=== PATIENT | female | born 1995 | race Caucasian/White ===

== ENCOUNTER 2024-02-16 07:36 | Inpatient (IN) ==
[2024-02-16] MEDS ORDERED: LIDOCAINE 1% LOCAL 20 ML VIAL INFIL PRN (08:43)
[2024-02-16 09:15] LABS: Hematocrit (blood only) 30.6 % (37.0-47.0); Hemoglobin 10.5 g/dl (12.0-16.0); Mean Corpuscular Hemoglobin 30.4 pg (25.0-34.0); Mean Corpuscular Hgb Conc 34.3 g/dL (32.0-36.0); Mean Corpuscular Volume 88.7 fL (80.0-100.0); Mean Platelet Volume 11.1 fL (9.4-12.4); Platelet Count 171 K/uL (130-400); RDW Coefficient of Variation 13.2 % (11.5-14.5); RDW Standard Deviation 42.4 fL (36.4-46.3); Red Blood Count 3.45 M/uL (4.20-5.40); White Blood Count 11.32 K/ul (4.8-10.8)
[2024-02-16] MEDS: LACTATED RINGER'S 1,000 ML IV PRN (09:20)
[2024-02-16] MEDS: PENICILLIN GK 6 MU in DEXTROSE 5% 250 ML IV STA (09:21)
--- NOTE | 2024-02-16 09:21 | History & Physical Report ---
Date of Service February 16, 2024 Assessment & Plan (1) 40 weeks gestation of : (2) Encounter for induction of labor: Plan Aviles placed and pitocin started for indution. Fetus category one. arom as indicated. epidural on request. Anticipate . Admission and Anticipated Discharge Date Admission Date: February 16, 2024 History of Present Illness Chief Complaint: iol Primary Care Provider: NO PCP Patient is a 29yowf with iup at 40 4/7 weeks who presents to labor and delivery for iol for post dates. Notes feels well. rare contractions. Good fm. Patient had an unfavorable cervix in the office yesterday. Aviles was planned that evening. Unable to accomodate last night. Plan to place a aviles today. Discussed the r/b/se including arom, nrfht, need for urgent delivery. Verbal consent obtained. and Delivery Plans COVID POSITIVE 10/22/23 (SX STARTED 10/20/23) -Start low dose aspirin Hypothyroid *Check TFTs Q4wks GBS positive by urine IOL 02/16/24 OB Labs: Blood Type O Positive 07/09/23 Antibody Screen NEGATIVE 07/09/23 Hemoglobin 11.3 g/dl (12.0-16.0) L 11/22/23 Hematocrit 33.0 % (37.0-47.0) L 11/22/23 Mean Corpuscular Volume 89.5 fL (80.0-100.0) 07/09/23 Platelet Count 211 K/uL (130-400) 07/09/23 Rubella IgG Antibody Immune (Immune) 07/09/23 Rapid Plasma Reagin Nonreactive (Nonreactive) 07/09/23 Hepatitis B Surface Antigen. NON-REACTIVE (NON-REACTIVE) 07/09/23 Hepatitis C Antibody (EIA) NON-REACTIVE (NON-REACTIVE) 07/09/23 HIV (1&2) Ag and Ab Confirmation NON-REACTIVE (NON-REACTIVE) 07/09/23 Glucose 1 Hour 50 gm Load 120 mg/dl (70-130) 11/22/23 Maternal Serum Alpha Fetoprotein 44.9 ng/mL 09/03/23 OB Optional Labs: Chlamydia trachomatis RNA Not Detected (NotDetected) 07/09/23 Neisseria gonorrhoeae RNA Not Detected (NotDetected) 07/09/23 Thyroid Stimulating Hormone (TSH) 1.511 uIu/ml (0.300-4.500) 01/07/24 Alpha Fetoprotein Triple Screen SEE NOTE 09/03/23 Labs Reviewed: Horizon 14-negative--mln cfdna-low risk--mln GBS positive in urine. Allergies Allergy/AdvReac Type Severity Reaction Status Date / Time apple Allergy Swelling Verified 02/16/24 08:22 of Lip/Tongue/Throat cucumber Allergy Swelling Verified 02/16/24 08:22 of Lip/Tongue/Throat strawberry Allergy Swelling Verified 02/16/24 08:22 of Lip/Tongue/Throat Home Medications Medication Instructions Recorded Confirmed Type vit 168-iron 27 mg-folic cap PO 06/28/23 02/15/24 History acid 800 mcg-omega3 235 mg capsule (One-A-Day -1) ondansetron HCl 4 mg tablet 4 mg PO Q6H PRN nausea and 10/29/23 02/16/24 Rx vomiting #20 tabs levothyroxine 125 mcg tablet 125 mcg PO DAILY #30 tabs 02/11/24 02/16/24 Rx Patient History Surgical History History of endoscopy History of colonoscopy History of cholecystectomy Family History Grandfather (Paternal) No problems noted. Grandfather (Maternal) Breast cancer great grandfather Mother Hypertension Hypothyroidism Father Heart disorder Other Diabetes Denies family history of Ovarian cancer Colorectal cancer Social History Smoking Status: Former smoker Tobacco Type: E-cigarettes / Vaping Second Hand Exposure: No; Do You Dip or Chew Tobacco: No; Hx Alcohol Use: Yes Alcohol Intake Frequency: 2-4 x/Month Hx Substance Use: No Preferred Language: Bulgarian Communication Ability: Effective Bill Checker Required: No Beliefs That Will Affect Care: None marital status: marital status details: Santiago(26) [phone] Current Living Situation: Spouse Current Living Situation Comment: lives with spouse, 1 dog current occupational status: employed 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 cervix visualized with speculum. aviles placed though cervix visually, inflated wtih 30cc sterile water. Tolerated well toco--rare efm--130s with mod variability, accels to 170s, no decels. Results & Data Vital Signs (Past 12 Hours) Vital Signs Temp Pulse Resp BP 02/16/24 08:06 96 H 134/92 02/16/24 08:02 36.9 C 18 Coding Level of Care Code None Diagnoses 40 weeks gestation of Z3A.40 Encounter for induction of labor Z34.90
[2024-02-16] MEDS: OXYTOCIN 30 UNITS/NSS 30 UNITS/500 ML BAG IV PRN (09:35)
[2024-02-16] MEDS ORDERED: ePHEDrine sulfate 50 MG/ML AMP IV PRN (11:32)
[2024-02-16] MEDS ORDERED: NALOXONE HCL 1 MG in SODIUM CHLORIDE 0.9% 1,000 ML IV PRN (11:32)
[2024-02-16] MEDS ORDERED: NALBUPHINE HCL 5 MG in SYRINGE 0 ML IV PRN (11:32)
[2024-02-16] MEDS ORDERED: NALOXONE HCL 0.4 MG/1 ML VIAL/CARP IV PRN (11:32)
[2024-02-16] MEDS ORDERED: ROPIVACAINE 0.5% PF 5 MG/ML 20 ML VIAL EPI PRN (11:32)
[2024-02-16] MEDS ORDERED: diphenhydrAMINE 50 MG/ML VIAL IV PRN (11:32)
[2024-02-16] MEDS ORDERED: LIDOCAINE 2% MPF LOCAL 5 ML VIAL EPI PRN (11:32)
--- NOTE | 2024-02-16 11:32 | Anesthesiology Consultation ---
Date of Service February 16, 2024 Assessment & Plan (1) Encounter for pre-operative examination: Chart Review Chart Review: Patient NOT seen in Pre Admission Testing and Acceptable Risk for Labor Epidural Consults Requested none History Height/Weight Height: 5 ft 4 in Weight: 98.43 kg Allergies Allergy/AdvReac Type Severity Reaction Status Date / Time apple Allergy Swelling Verified 02/16/24 08:22 of Lip/Tongue/Throat cucumber Allergy Swelling Verified 02/16/24 08:22 of Lip/Tongue/Throat strawberry Allergy Swelling Verified 02/16/24 08:22 of Lip/Tongue/Throat Medications Home Medications Medication Instructions Recorded Confirmed Last Taken vit 168-iron 27 mg-folic cap PO 06/28/23 02/15/24 02/15/24 acid 800 mcg-omega3 235 mg capsule (One-A-Day -1) ondansetron HCl 4 mg tablet 4 mg PO Q6H PRN nausea and 10/29/23 02/16/24 02/14/24 vomiting #20 tabs levothyroxine 125 mcg tablet 125 mcg PO DAILY #30 tabs 02/11/24 02/16/24 02/16/24 Active Medications Generic Name Dose Route Start Last Admin Trade Name Freq PRN Reason Stop Dose Admin Oxytocin 30 units in 500 mls @ 1 mls/hr 02/16/24 08:43 02/16/24 09:35 Pitocin 30 Units/Nss IV 02/18/24 08:42 0.06 units/hr .Q24H PRN 1 mls/hr Labor Induction/Augmentation Administration Protocol 0.06 UNITS/HR Lactated Ringer's 1,000 mls @ 125 mls/hr 02/16/24 08:43 02/16/24 09:20 Lr IV 02/18/24 08:42 125 mls/hr .Q8H PRN Administration L&D Protocol Protocol Past Family History Family History Grandfather (Paternal) No problems noted. Grandfather (Maternal) Breast cancer great grandfather Mother Hypertension Hypothyroidism Father Heart disorder Other Diabetes Denies family history of Ovarian cancer Colorectal cancer Past Surgical History Surgical History History of endoscopy History of colonoscopy History of cholecystectomy Social History Smoking Status: Former smoker Do You Dip or Chew Tobacco: No Hx Alcohol Use: Yes Hx Substance Use: No Physical Exam Vital Signs Last Vital Signs Temp 98.4 F 02/16/24 08:06 Pulse 82 02/16/24 11:16 Resp 18 02/16/24 08:02 BP 135/87 02/16/24 11:16 Testing Laboratory Results 02/16/24 08:58
[2024-02-16] MEDS: fentANYL 2 MCG/ML BUPIVacaine 0.125%-NSS 100ML BAG EPI PRN (11:59)
[2024-02-16] MEDS: BUPIVACAINE 0.25% PF 30 ML VIAL EPI PRN (12:01)
[2024-02-16] MEDS: LIDOCAINE 2%/EPINEPHRINE 1:200,000 20 ML PF EPI STA (12:01)
[2024-02-16] MEDS: PENICILLIN GK 3 MU in DEXTROSE 5% 100 ML IV PRN (13:16)
[2024-02-16] MEDS: ePHEDrine sulfate 50 MG/ML AMP ONE (13:28)
[2024-02-16] MEDS: fentANYL 2 MCG/ML BUPIVacaine 0.125%-NSS 100ML BAG ONE (13:28)
[2024-02-16] MEDS: fentaNYL citrate PF 100 MCG/2 ML VIAL ONE (13:28)
[2024-02-16] MEDS: BUPIVACAINE 0.25% PF 30 ML VIAL EPI STA (13:29)
[2024-02-16] MEDS: BUPIVACAINE 0.25% PF 30 ML VIAL ONE (13:29)
[2024-02-16] MEDS: fentaNYL citrate PF 100 MCG/2 ML VIAL EPI STA (13:29)
[2024-02-16] MEDS: LIDOCAINE 2%/EPINEPHRINE 1:200,000 20 ML PF ONE (13:29)
[2024-02-16] MEDS: SODIUM CHLORIDE 0.9% PF INJ 10 ML VIAL EPI STA (13:29)
[2024-02-16] MEDS: SODIUM CHLORIDE 0.9% PF INJ 10 ML VIAL ONE (13:29)
--- NOTE | 2024-02-16 17:24 | Labor Progress Brief Note ---
Date of Service February 16, 2024 Subjective comfortable with epidural Assessment & Plan (1) Encounter for induction of labor: (2) 40 weeks gestation of : Plan continue current management. Fetus overall category one. making change. anticipate . Admission and Anticipated Discharge Date Admission Date: February 16, 2024 Physical Exam Physical Exam: cx--5/75/-2 toco--q q 2-4min, pit at 13 efm--150s with mod variability, accels to 160s , had a decel while lying flat on her back and recovered with position change Results & Data Vital Signs (Past 12 Hours) Vital Signs Temp Pulse Resp BP Pulse Ox 02/16/24 17:19 83 96 02/16/24 17:17 81 91 02/16/24 17:14 92 H 96 02/16/24 17:09 97 02/16/24 17:09 89 02/16/24 17:09 32 L 110/67 02/16/24 17:08 90 94 02/16/24 17:04 85 96 02/16/24 17:00 18 02/16/24 17:00 18 02/16/24 16:59 95 02/16/24 16:59 93 H 02/16/24 16:59 85 94 02/16/24 16:55 89 121/79 02/16/24 16:54 86 94 02/16/24 16:52 82 94 02/16/24 16:49 92 H 96 02/16/24 16:44 84 95 02/16/24 16:43 92 H 94 02/16/24 16:39 88 123/77 96 02/16/24 16:34 82 95 02/16/24 16:30 80 18 94 02/16/24 16:29 83 95 02/16/24 16:24 97 02/16/24 16:24 84 02/16/24 16:24 86 127/86 02/16/24 16:23 83 94 02/16/24 16:19 89 97 02/16/24 16:14 79 96 02/16/24 16:09 75 130/80 97 02/16/24 16:04 86 95 02/16/24 16:01 84 91 02/16/24 16:00 18 02/16/24 16:00 18 02/16/24 15:59 86 96 02/16/24 15:54 99 02/16/24 15:54 77 02/16/24 15:54 93 H 136/81 02/16/24 15:51 64 94 02/16/24 15:49 63 96 02/16/24 15:44 64 94 02/16/24 15:43 65 94 02/16/24 15:39 62 117/64 95 02/16/24 15:34 68 96 02/16/24 15:30 18 02/16/24 15:30 18 02/16/24 15:29 67 97 02/16/24 15:24 96 02/16/24 15:24 80 02/16/24 15:24 65 114/62 02/16/24 15:19 65 97 02/16/24 15:14 68 98 02/16/24 15:09 96 02/16/24 15:09 73 02/16/24 15:09 75 123/63 02/16/24 15:04 65 95 02/16/24 14:59 63 96 02/16/24 14:54 96 02/16/24 14:54 64 02/16/24 14:54 65 120/62 02/16/24 14:49 67 98 02/16/24 14:44 66 96 02/16/24 14:39 96 02/16/24 14:39 69 02/16/24 14:39 65 116/65 02/16/24 14:34 68 98 02/16/24 14:30 18 02/16/24 14:30 36.9 C 18 02/16/24 14:29 74 100 02/16/24 14:25 75 136/80 02/16/24 14:24 75 99 02/16/24 14:19 69 99 02/16/24 14:14 85 98 02/16/24 14:09 97 02/16/24 14:09 74 02/16/24 14:09 69 129/80 02/16/24 14:04 75 96 02/16/24 14:00 18 02/16/24 14:00 18 02/16/24 13:59 67 99 02/16/24 13:54 70 136/81 99 02/16/24 13:49 71 97 02/16/24 13:44 69 98 02/16/24 13:39 98 02/16/24 13:39 71 02/16/24 13:39 66 130/74 02/16/24 13:34 74 99 02/16/24 13:30 18 02/16/24 13:30 18 02/16/24 13:29 78 99 02/16/24 13:25 82 145/87 H 02/16/24 13:24 74 99 02/16/24 13:19 71 99 02/16/24 13:14 71 98 02/16/24 13:09 69 123/74 98 02/16/24 13:05 70 89 L 02/16/24 13:04 74 98 02/16/24 13:00 18 02/16/24 13:00 36.9 C 18 02/16/24 12:59 69 97 02/16/24 12:54 69 120/72 97 02/16/24 12:49 71 98 02/16/24 12:44 70 97 02/16/24 12:39 73 121/74 97 02/16/24 12:35 80 92 02/16/24 12:34 78 95 02/16/24 12:30 18 02/16/24 12:30 36.9 C 18 02/16/24 12:29 71 97 02/16/24 12:24 74 125/74 97 02/16/24 12:19 73 98 02/16/24 12:14 77 99 02/16/24 12:10 18 02/16/24 12:10 18 02/16/24 12:09 81 99 02/16/24 12:08 18 02/16/24 12:08 18 02/16/24 12:07 80 123/69 02/16/24 12:06 18 02/16/24 12:06 18 02/16/24 12:05 78 137/69 02/16/24 12:04 85 18 98 02/16/24 12:03 77 129/77 02/16/24 12:02 18 02/16/24 12:02 18 02/16/24 12:01 82 137/77 02/16/24 12:00 18 02/16/24 12:00 18 02/16/24 11:59 84 135/79 98 02/16/24 11:58 18 02/16/24 11:58 18 02/16/24 11:57 88 128/74 02/16/24 11:54 84 99 02/16/24 11:49 87 100 02/16/24 11:44 81 100 02/16/24 11:41 18 02/16/24 11:41 18 02/16/24 11:16 82 135/87 02/16/24 10:41 70 142/93 H 02/16/24 10:39 75 141/88 H 02/16/24 08:06 36.9 C 96 H 134/92 02/16/24 08:02 36.9 C 18 Coding Level of Care Code None Diagnoses Encounter for induction of labor Z34.90 40 weeks gestation of Z3A.40
--- NOTE | 2024-02-16 18:35 | Labor Progress Brief Note ---
Date of Service February 16, 2024 Subjective comfortable Assessment & Plan (1) Encounter for induction of labor: (2) 40 weeks gestation of : Plan iupc placed. goal of mvus >200. fetus overall very reassuring , even though category two at times wtih some variables. pit based on mvus. Admission and Anticipated Discharge Date Admission Date: February 16, 2024 Physical Exam Physical Exam: cx--5/80/-2 iupc placed clear fluid noted toco--q3-4, pit at 13 efm--150s with mod varibility, accels present, +scalp stim, some variables noted when the baby is very active and moving alot. resolve with position change Results & Data Vital Signs (Past 12 Hours) Vital Signs Temp Pulse Resp BP Pulse Ox 02/16/24 18:29 86 97 02/16/24 18:26 75 92 02/16/24 18:24 71 121/64 96 02/16/24 18:19 68 95 02/16/24 18:14 75 99 02/16/24 18:11 93 H 93 02/16/24 18:09 95 02/16/24 18:09 71 02/16/24 18:09 75 141/80 H 02/16/24 18:04 73 96 02/16/24 18:00 18 02/16/24 18:00 18 02/16/24 17:59 73 96 02/16/24 17:54 79 136/78 98 02/16/24 17:49 82 99 02/16/24 17:44 81 90 02/16/24 17:39 96 02/16/24 17:39 78 02/16/24 17:39 74 132/79 02/16/24 17:34 85 96 02/16/24 17:31 83 93 02/16/24 17:30 18 02/16/24 17:30 36.9 C 18 02/16/24 17:29 89 96 02/16/24 17:24 77 124/61 97 02/16/24 17:19 83 96 02/16/24 17:17 81 91 02/16/24 17:14 92 H 96 02/16/24 17:09 97 02/16/24 17:09 89 02/16/24 17:09 32 L 110/67 02/16/24 17:08 90 94 02/16/24 17:04 85 96 02/16/24 17:00 18 02/16/24 17:00 18 02/16/24 16:59 95 02/16/24 16:59 93 H 02/16/24 16:59 85 94 02/16/24 16:55 89 121/79 02/16/24 16:54 86 94 02/16/24 16:52 82 94 02/16/24 16:49 92 H 96 02/16/24 16:44 84 95 02/16/24 16:43 92 H 94 02/16/24 16:39 88 123/77 96 02/16/24 16:34 82 95 02/16/24 16:30 80 18 94 02/16/24 16:29 83 95 02/16/24 16:24 97 02/16/24 16:24 84 02/16/24 16:24 86 127/86 02/16/24 16:23 83 94 02/16/24 16:19 89 97 02/16/24 16:14 79 96 02/16/24 16:09 75 130/80 97 02/16/24 16:04 86 95 02/16/24 16:01 84 91 02/16/24 16:00 18 02/16/24 16:00 18 02/16/24 15:59 86 96 02/16/24 15:54 99 02/16/24 15:54 77 02/16/24 15:54 93 H 136/81 02/16/24 15:51 64 94 02/16/24 15:49 63 96 02/16/24 15:44 64 94 02/16/24 15:43 65 94 02/16/24 15:39 62 117/64 95 02/16/24 15:34 68 96 02/16/24 15:30 18 02/16/24 15:30 18 02/16/24 15:29 67 97 02/16/24 15:24 96 02/16/24 15:24 80 02/16/24 15:24 65 114/62 02/16/24 15:19 65 97 02/16/24 15:14 68 98 02/16/24 15:09 96 02/16/24 15:09 73 02/16/24 15:09 75 123/63 02/16/24 15:04 65 95 02/16/24 14:59 63 96 04/03/24 14:54 96 02/16/24 14:54 64 02/16/24 14:54 65 120/62 02/16/24 14:49 67 98 02/16/24 14:44 66 96 02/16/24 14:39 96 02/16/24 14:39 69 02/16/24 14:39 65 116/65 02/16/24 14:34 68 98 02/16/24 14:30 18 02/16/24 14:30 36.9 C 18 02/16/24 14:29 74 100 02/16/24 14:25 75 136/80 02/16/24 14:24 75 99 02/16/24 14:19 69 99 02/16/24 14:14 85 98 02/16/24 14:09 97 02/16/24 14:09 74 02/16/24 14:09 69 129/80 02/16/24 14:04 75 96 02/16/24 14:00 18 02/16/24 14:00 18 02/16/24 13:59 67 99 02/16/24 13:54 70 136/81 99 02/16/24 13:49 71 97 02/16/24 13:44 69 98 02/16/24 13:39 98 02/16/24 13:39 71 02/16/24 13:39 66 130/74 02/16/24 13:34 74 99 02/16/24 13:30 18 02/16/24 13:30 18 02/16/24 13:29 78 99 02/16/24 13:25 82 145/87 H 02/16/24 13:24 74 99 02/16/24 13:19 71 99 02/16/24 13:14 71 98 02/16/24 13:09 69 123/74 98 02/16/24 13:05 70 89 L 02/16/24 13:04 74 98 02/16/24 13:00 18 02/16/24 13:00 36.9 C 18 02/16/24 12:59 69 97 02/16/24 12:54 69 120/72 97 02/16/24 12:49 71 98 02/16/24 12:44 70 97 02/16/24 12:39 73 121/74 97 04/03/24 12:35 80 92 02/16/24 12:34 78 95 02/16/24 12:30 18 02/16/24 12:30 36.9 C 18 02/16/24 12:29 71 97 02/16/24 12:24 74 125/74 97 02/16/24 12:19 73 98 02/16/24 12:14 77 99 02/16/24 12:10 18 02/16/24 12:10 18 02/16/24 12:09 81 99 02/16/24 12:08 18 02/16/24 12:08 18 02/16/24 12:07 80 123/69 02/16/24 12:06 18 02/16/24 12:06 18 02/16/24 12:05 78 137/69 02/16/24 12:04 85 18 98 02/16/24 12:03 77 129/77 02/16/24 12:02 18 02/16/24 12:02 18 02/16/24 12:01 82 137/77 02/16/24 12:00 18 02/16/24 12:00 18 02/16/24 11:59 84 135/79 98 02/16/24 11:58 18 02/16/24 11:58 18 02/16/24 11:57 88 128/74 02/16/24 11:54 84 99 02/16/24 11:49 87 100 02/16/24 11:44 81 100 02/16/24 11:41 18 02/16/24 11:41 18 02/16/24 11:16 82 135/87 02/16/24 10:41 70 142/93 H 02/16/24 10:39 75 141/88 H 02/16/24 08:06 36.9 C 96 H 134/92 02/16/24 08:02 36.9 C 18 Coding Level of Care Code None Diagnoses Encounter for induction of labor Z34.90 40 weeks gestation of Z3A.40
[2024-02-16] MEDS: SODIUM CHLORIDE 0.9% PF INJ 10 ML VIAL EPI PRN (22:34)
[2024-02-16] MEDS: fentaNYL citrate PF 100 MCG/2 ML VIAL EPI PRN (22:34)
--- NOTE | 2024-02-16 22:37 | Anesthesia Procedure Note ---
Date of Service February 16, 2024 Anesthesia Epidural Re-Dose Vital Signs Temp Pulse Resp BP Pulse Ox 37.2 C 86 16 147/80 H 100 02/16/24 21:01 02/16/24 22:34 02/16/24 21:01 02/16/24 22:34 02/16/24 22:34 Notes Pain Intensity: 7 Dilatation (cm): 6.0 Effacement (%): 80 Called by nursing to evaluate epidural as the patient is having increased pain. The epidural was re-dosed with the following medications (all medications via epidural route) after negative aspiration of the epidural catheter for CSF/HEME. 0.2 Ropivacaine ml via epidural After Epidural Re-Dose Mental Status: alert / awake / arousable and participated in evaluation Pain: improving with treatment Airway Patency, RR, SpO2: stable & adequate BP & HR: stable & adequate Additional Notes: Asked to evaluate patient for worsening pain with contractions. Patient has b/l L1 level on exam with ice. Redosed epidural with 10 cc of 0.125% bupi and 100 mcg fentanyl. BP stable. patient pain improved.
--- NOTE | 2024-02-17 01:14 | Labor Progress Brief Note ---
Date of Service February 17, 2024 Subjective Got redosed and comfortable Assessment & Plan (1) Encounter for induction of labor: (2) 40 weeks gestation of : Plan continues to make cervical change, however, not descending in the pelvis which is starting to become a bit concerning. Also some fhr changes could be consistent with impending cpd. fetus overall reassuring. Continue to montior closely patient and partner aware of my concerns. Admission and Anticipated Discharge Date Admission Date: February 16, 2024 Physical Exam Physical Exam: cx--ant lip/-1 toco--q2min, pit at 15, mvus adequate efm--140s with mod variability, variables at times with contractions, some periods of apparant marked variability Results & Data Vital Signs (Past 12 Hours) Vital Signs Temp Pulse Resp BP Pulse Ox 02/17/24 01:09 94 H 99 02/17/24 01:04 99 H 100 02/17/24 01:03 93 02/17/24 01:03 88 02/17/24 01:03 80 134/77 02/17/24 00:59 103 H 96 02/17/24 00:54 81 97 02/17/24 00:49 93 H 98 02/17/24 00:44 84 98 02/17/24 00:40 98 H 92 02/17/24 00:39 91 H 97 02/17/24 00:34 91 H 99 02/17/24 00:33 91 H 141/84 H 02/17/24 00:29 86 97 02/17/24 00:25 95 H 93 02/17/24 00:24 93 H 96 02/17/24 00:19 101 H 97 02/17/24 00:17 93 H 144/89 H 02/17/24 00:14 96 H 98 02/17/24 00:09 116 H 100 02/17/24 00:05 89 91 02/17/24 00:04 91 H 98 02/17/24 00:03 81 139/82 02/16/24 23:59 90 99 02/16/24 23:56 86 93 02/16/24 23:54 91 H 100 02/16/24 23:49 92 H 98 02/16/24 23:47 92 H 144/88 H 02/16/24 23:44 90 98 02/16/24 23:39 85 98 02/16/24 23:34 83 98 02/16/24 23:33 83 141/80 H 02/16/24 23:29 80 96 02/16/24 23:24 88 96 02/16/24 23:19 80 98 02/16/24 23:17 85 137/86 02/16/24 23:14 86 97 02/16/24 23:12 16 02/16/24 23:12 37.1 C 16 02/16/24 23:11 90 94 02/16/24 23:09 77 97 02/16/24 23:04 79 100 02/16/24 23:02 79 142/81 H 02/16/24 22:59 80 100 02/16/24 22:56 103 H 89 L 02/16/24 22:54 95 H 100 02/16/24 22:49 100 02/16/24 22:49 96 H 02/16/24 22:49 89 92 02/16/24 22:46 129/73 02/16/24 22:44 99 02/16/24 22:44 90 02/16/24 22:44 83 136/75 92 02/16/24 22:42 92 H 136/74 02/16/24 22:40 90 136/75 02/16/24 22:39 85 100 02/16/24 22:38 87 136/75 02/16/24 22:36 94 H 134/77 02/16/24 22:34 86 147/80 H 100 02/16/24 22:32 84 145/85 H 02/16/24 22:29 84 L 02/16/24 22:29 83 02/16/24 22:29 88 151/85 H 89 L 02/16/24 22:24 82 99 02/16/24 22:19 99 02/16/24 22:19 86 02/16/24 22:19 92 H 142/93 H 02/16/24 22:14 105 H 98 02/16/24 22:09 90 100 02/16/24 22:05 85 88 L 02/16/24 22:04 87 98 02/16/24 21:59 81 100 02/16/24 21:54 83 99 02/16/24 21:49 93 H 97 02/16/24 21:46 101 H 88 L 02/16/24 21:44 86 100 02/16/24 21:39 81 97 02/16/24 21:34 79 100 02/16/24 21:29 81 100 02/16/24 21:28 86 91 02/16/24 21:24 75 97 02/16/24 21:19 85 96 02/16/24 21:14 87 97 02/16/24 21:09 86 98 02/16/24 21:08 89 93 02/16/24 21:04 90 99 02/16/24 21:01 16 02/16/24 21:01 37.2 C 16 02/16/24 20:59 90 98 02/16/24 20:54 78 L 02/16/24 20:54 75 02/16/24 20:54 65 94 02/16/24 20:49 96 H 100 02/16/24 20:48 112 H 91 02/16/24 20:44 97 H 135/88 100 02/16/24 20:39 133 H 100 02/16/24 20:34 88 100 02/16/24 20:30 100 H 94 02/16/24 20:29 90 100 02/16/24 20:28 90 140/85 02/16/24 20:24 93 H 98 02/16/24 20:19 102 H 100 02/16/24 20:15 106 H 91 02/16/24 20:14 95 H 100 02/16/24 20:09 99 H 139/91 99 02/16/24 20:07 93 H 90 02/16/24 20:04 83 99 02/16/24 19:59 78 100 02/16/24 19:54 81 134/96 96 02/16/24 19:51 84 90 02/16/24 19:49 85 99 02/16/24 19:44 85 98 02/16/24 19:43 80 93 02/16/24 19:40 76 158/80 H 02/16/24 19:39 69 99 02/16/24 19:34 69 82 L 02/16/24 19:29 69 98 02/16/24 19:28 72 92 02/16/24 19:24 72 171/88 H 100 02/16/24 19:21 71 91 02/16/24 19:19 72 100 02/16/24 19:14 76 97 02/16/24 19:12 74 92 02/16/24 19:09 97 02/16/24 19:09 72 02/16/24 19:09 72 149/90 H 02/16/24 19:04 36.9 C 74 16 100 02/16/24 18:59 72 100 02/16/24 18:54 98 02/16/24 18:54 74 02/16/24 18:54 69 150/87 H 02/16/24 18:51 73 92 02/16/24 18:49 75 100 02/16/24 18:44 74 100 02/16/24 18:42 80 93 02/16/24 18:39 98 02/16/24 18:39 75 02/16/24 18:39 109 H 141/80 H 02/16/24 18:34 74 99 02/16/24 18:32 87 93 02/16/24 18:30 18 02/16/24 18:30 18 02/16/24 18:29 86 97 02/16/24 18:26 75 92 02/16/24 18:24 71 121/64 96 02/16/24 18:19 68 95 02/16/24 18:14 75 99 02/16/24 18:11 93 H 93 02/16/24 18:09 95 02/16/24 18:09 71 02/16/24 18:09 75 141/80 H 02/16/24 18:04 73 96 02/16/24 18:00 18 02/16/24 18:00 18 02/16/24 17:59 73 96 02/16/24 17:54 79 136/78 98 02/16/24 17:49 82 99 02/16/24 17:44 81 90 02/16/24 17:39 96 02/16/24 17:39 78 02/16/24 17:39 74 132/79 02/16/24 17:34 85 96 02/16/24 17:31 83 93 02/16/24 17:30 18 02/16/24 17:30 36.9 C 18 02/16/24 17:29 89 96 02/16/24 17:24 77 124/61 97 02/16/24 17:19 83 96 02/16/24 17:17 81 91 02/16/24 17:14 92 H 96 02/16/24 17:09 97 02/16/24 17:09 89 02/16/24 17:09 32 L 110/67 02/16/24 17:08 90 94 02/16/24 17:04 85 96 02/16/24 17:00 18 02/16/24 17:00 18 02/16/24 16:59 95 02/16/24 16:59 93 H 02/16/24 16:59 85 94 02/16/24 16:55 89 121/79 02/16/24 16:54 86 94 02/16/24 16:52 82 94 02/16/24 16:49 92 H 96 02/16/24 16:44 84 95 02/16/24 16:43 92 H 94 02/16/24 16:39 88 123/77 96 02/16/24 16:34 82 95 02/16/24 16:30 80 18 94 02/16/24 16:29 83 95 02/16/24 16:24 97 02/16/24 16:24 84 02/16/24 16:24 86 127/86 02/16/24 16:23 83 94 02/16/24 16:19 89 97 02/16/24 16:14 79 96 02/16/24 16:09 75 130/80 97 02/16/24 16:04 86 95 02/16/24 16:01 84 91 02/16/24 16:00 18 02/16/24 16:00 18 02/16/24 15:59 86 96 02/16/24 15:54 99 02/16/24 15:54 77 02/16/24 15:54 93 H 136/81 02/16/24 15:51 64 94 02/16/24 15:49 63 96 02/16/24 15:44 64 94 02/16/24 15:43 65 94 02/16/24 15:39 62 117/64 95 02/16/24 15:34 68 96 02/16/24 15:30 18 02/16/24 15:30 18 02/16/24 15:29 67 97 02/16/24 15:24 96 02/16/24 15:24 80 02/16/24 15:24 65 114/62 02/16/24 15:19 65 97 02/16/24 15:14 68 98 02/16/24 15:09 96 02/16/24 15:09 73 04/03/24 15:09 75 123/63 02/16/24 15:04 65 95 02/16/24 14:59 63 96 02/16/24 14:54 96 02/16/24 14:54 64 02/16/24 14:54 65 120/62 02/16/24 14:49 67 98 02/16/24 14:44 66 96 02/16/24 14:39 96 02/16/24 14:39 69 02/16/24 14:39 65 116/65 02/16/24 14:34 68 98 02/16/24 14:30 18 02/16/24 14:30 36.9 C 18 02/16/24 14:29 74 100 02/16/24 14:25 75 136/80 02/16/24 14:24 75 99 02/16/24 14:19 69 99 02/16/24 14:14 85 98 02/16/24 14:09 97 02/16/24 14:09 74 02/16/24 14:09 69 129/80 02/16/24 14:04 75 96 02/16/24 14:00 18 02/16/24 14:00 18 02/16/24 13:59 67 99 02/16/24 13:54 70 136/81 99 02/16/24 13:49 71 97 02/16/24 13:44 69 98 02/16/24 13:39 98 02/16/24 13:39 71 02/16/24 13:39 66 130/74 02/16/24 13:34 74 99 02/16/24 13:30 18 02/16/24 13:30 18 02/16/24 13:29 78 99 02/16/24 13:25 82 145/87 H 02/16/24 13:24 74 99 02/16/24 13:19 71 99 02/16/24 13:14 71 98 Coding Level of Care Code None Diagnoses Encounter for induction of labor Z34.90 40 weeks gestation of Z3A.40
--- NOTE | 2024-02-17 03:08 | Labor Progress Brief Note ---
Date of Service February 17, 2024 Subjective notes comfortable. baby does not tolerate the right side. some recent elevated pressures but otherwise asymptomatic. Assessment & Plan (1) Encounter for induction of labor: (2) 40 weeks gestation of : Plan fetus overall reassuring, responds to postion change, suspect we have a cord somewhere. baby is lower, lots of molding. recheck in 1 hour. Admission and Anticipated Discharge Date Admission Date: February 16, 2024 Physical Exam Physical Exam: cx--ant lip, floppy, station 0 toco--q1-2min, pit at 15, Mvus have been mostly adequate efm--150s with mod variability, small accels, occasional variables, baby very active Results & Data Vital Signs (Past 12 Hours) Vital Signs Temp Pulse Resp BP Pulse Ox 02/17/24 03:04 83 168/90 H 02/17/24 03:03 93 H 182/96 H 02/17/24 02:48 91 H 178/96 H 02/17/24 02:46 18 02/17/24 02:46 37.0 C 18 02/17/24 02:38 95 H 148/67 H 02/17/24 02:36 89 174/97 H 02/17/24 02:34 89 191/97 H 02/17/24 02:09 78 94 02/17/24 02:04 94 02/17/24 02:04 79 02/17/24 02:04 78 94 02/17/24 02:02 76 127/60 02/17/24 01:59 95 02/17/24 01:59 88 02/17/24 01:59 77 94 02/17/24 01:54 76 95 02/17/24 01:49 79 95 02/17/24 01:47 86 115/65 02/17/24 01:44 80 96 02/17/24 01:39 37.2 C 88 18 97 02/17/24 01:35 85 94 02/17/24 01:34 82 95 02/17/24 01:33 85 145/77 H 02/17/24 01:29 79 95 02/17/24 01:24 84 97 02/17/24 01:19 81 96 02/17/24 01:18 80 142/81 H 02/17/24 01:14 87 96 02/17/24 01:09 94 H 99 02/17/24 01:04 99 H 100 02/17/24 01:03 93 02/17/24 01:03 88 02/17/24 01:03 80 134/77 02/17/24 00:59 103 H 96 02/17/24 00:54 81 97 02/17/24 00:49 93 H 98 02/17/24 00:44 84 98 02/17/24 00:40 98 H 92 02/17/24 00:39 91 H 97 02/17/24 00:34 91 H 99 02/17/24 00:33 91 H 141/84 H 02/17/24 00:29 86 97 02/17/24 00:25 95 H 93 02/17/24 00:24 93 H 96 02/17/24 00:19 101 H 97 02/17/24 00:17 93 H 144/89 H 02/17/24 00:14 96 H 98 02/17/24 00:09 116 H 100 02/17/24 00:05 89 91 02/17/24 00:04 91 H 98 02/17/24 00:03 81 139/82 02/16/24 23:59 90 99 02/16/24 23:56 86 93 02/16/24 23:54 91 H 100 02/16/24 23:49 92 H 98 02/16/24 23:47 92 H 144/88 H 02/16/24 23:44 90 98 02/16/24 23:39 85 98 02/16/24 23:34 83 98 02/16/24 23:33 83 141/80 H 02/16/24 23:29 80 96 02/16/24 23:24 88 96 02/16/24 23:19 80 98 02/16/24 23:17 85 137/86 02/16/24 23:14 86 97 02/16/24 23:12 16 02/16/24 23:12 37.1 C 16 02/16/24 23:11 90 94 02/16/24 23:09 77 97 02/16/24 23:04 79 100 02/16/24 23:02 79 142/81 H 02/16/24 22:59 80 100 02/16/24 22:56 103 H 89 L 02/16/24 22:54 95 H 100 02/16/24 22:49 100 02/16/24 22:49 96 H 02/16/24 22:49 89 92 02/16/24 22:46 129/73 02/16/24 22:44 99 02/16/24 22:44 90 02/16/24 22:44 83 136/75 92 02/16/24 22:42 92 H 136/74 02/16/24 22:40 90 136/75 02/16/24 22:39 85 100 02/16/24 22:38 87 136/75 02/16/24 22:36 94 H 134/77 02/16/24 22:34 86 147/80 H 100 02/16/24 22:32 84 145/85 H 02/16/24 22:29 84 L 02/16/24 22:29 83 02/16/24 22:29 88 151/85 H 89 L 02/16/24 22:24 82 99 02/16/24 22:19 99 02/16/24 22:19 86 02/16/24 22:19 92 H 142/93 H 02/16/24 22:14 105 H 98 02/16/24 22:09 90 100 02/16/24 22:05 85 88 L 02/16/24 22:04 87 98 02/16/24 21:59 81 100 02/16/24 21:54 83 99 02/16/24 21:49 93 H 97 02/16/24 21:46 101 H 88 L 02/16/24 21:44 86 100 02/16/24 21:39 81 97 02/16/24 21:34 79 100 02/16/24 21:29 81 100 02/16/24 21:28 86 91 02/16/24 21:24 75 97 02/16/24 21:19 85 96 02/16/24 21:14 87 97 02/16/24 21:09 86 98 02/16/24 21:08 89 93 02/16/24 21:04 90 99 02/16/24 21:01 16 02/16/24 21:01 37.2 C 16 02/16/24 20:59 90 98 02/16/24 20:54 78 L 02/16/24 20:54 75 02/16/24 20:54 65 94 02/16/24 20:49 96 H 100 02/16/24 20:48 112 H 91 02/16/24 20:44 97 H 135/88 100 02/16/24 20:39 133 H 100 02/16/24 20:34 88 100 02/16/24 20:30 100 H 94 02/16/24 20:29 90 100 02/16/24 20:28 90 140/85 02/16/24 20:24 93 H 98 02/16/24 20:19 102 H 100 02/16/24 20:15 106 H 91 02/16/24 20:14 95 H 100 02/16/24 20:09 99 H 139/91 99 02/16/24 20:07 93 H 90 02/16/24 20:04 83 99 02/16/24 19:59 78 100 02/16/24 19:54 81 134/96 96 02/16/24 19:51 84 90 02/16/24 19:49 85 99 02/16/24 19:44 85 98 02/16/24 19:43 80 93 02/16/24 19:40 76 158/80 H 02/16/24 19:39 69 99 02/16/24 19:34 69 82 L 02/16/24 19:29 69 98 02/16/24 19:28 72 92 02/16/24 19:24 72 171/88 H 100 02/16/24 19:21 71 91 02/16/24 19:19 72 100 02/16/24 19:14 76 97 02/16/24 19:12 74 92 02/16/24 19:09 97 02/16/24 19:09 72 02/16/24 19:09 72 149/90 H 02/16/24 19:04 36.9 C 74 16 100 02/16/24 18:59 72 100 02/16/24 18:54 98 02/16/24 18:54 74 02/16/24 18:54 69 150/87 H 02/16/24 18:51 73 92 02/16/24 18:49 75 100 02/16/24 18:44 74 100 02/16/24 18:42 80 93 02/16/24 18:39 98 02/16/24 18:39 75 02/16/24 18:39 109 H 141/80 H 02/16/24 18:34 74 99 02/16/24 18:32 87 93 02/16/24 18:30 18 02/16/24 18:30 18 02/16/24 18:29 86 97 02/16/24 18:26 75 92 02/16/24 18:24 71 121/64 96 02/16/24 18:19 68 95 02/16/24 18:14 75 99 02/16/24 18:11 93 H 93 02/16/24 18:09 95 02/16/24 18:09 71 02/16/24 18:09 75 141/80 H 02/16/24 18:04 73 96 02/16/24 18:00 18 02/16/24 18:00 18 02/16/24 17:59 73 96 02/16/24 17:54 79 136/78 98 02/16/24 17:49 82 99 02/16/24 17:44 81 90 02/16/24 17:39 96 02/16/24 17:39 78 02/16/24 17:39 74 132/79 02/16/24 17:34 85 96 02/16/24 17:31 83 93 02/16/24 17:30 18 02/16/24 17:30 36.9 C 18 02/16/24 17:29 89 96 02/16/24 17:24 77 124/61 97 02/16/24 17:19 83 96 02/16/24 17:17 81 91 02/16/24 17:14 92 H 96 02/16/24 17:09 97 02/16/24 17:09 89 02/16/24 17:09 32 L 110/67 02/16/24 17:08 90 94 02/16/24 17:04 85 96 02/16/24 17:00 18 02/16/24 17:00 18 02/16/24 16:59 95 02/16/24 16:59 93 H 02/16/24 16:59 85 94 02/16/24 16:55 89 121/79 02/16/24 16:54 86 94 02/16/24 16:52 82 94 02/16/24 16:49 92 H 96 02/16/24 16:44 84 95 02/16/24 16:43 92 H 94 02/16/24 16:39 88 123/77 96 02/16/24 16:34 82 95 02/16/24 16:30 80 18 94 02/16/24 16:29 83 95 02/16/24 16:24 97 02/16/24 16:24 84 02/16/24 16:24 86 127/86 02/16/24 16:23 83 94 02/16/24 16:19 89 97 02/16/24 16:14 79 96 02/16/24 16:09 75 130/80 97 02/16/24 16:04 86 95 02/16/24 16:01 84 91 02/16/24 16:00 18 02/16/24 16:00 18 02/16/24 15:59 86 96 02/16/24 15:54 99 02/16/24 15:54 77 02/16/24 15:54 93 H 136/81 02/16/24 15:51 64 94 02/16/24 15:49 63 96 02/16/24 15:44 64 94 02/16/24 15:43 65 94 02/16/24 15:39 62 117/64 95 02/16/24 15:34 68 96 02/16/24 15:30 18 02/16/24 15:30 18 02/16/24 15:29 67 97 02/16/24 15:24 96 02/16/24 15:24 80 02/16/24 15:24 65 114/62 02/16/24 15:19 65 97 02/16/24 15:14 68 98 02/16/24 15:09 96 02/16/24 15:09 73 02/16/24 15:09 75 123/63 Coding Level of Care Code None Diagnoses Encounter for induction of labor Z34.90 40 weeks gestation of Z3A.40
--- NOTE | 2024-02-17 04:30 | Labor Progress Brief Note ---
Date of Service February 17, 2024 Subjective comfortable. Pressures still in a mild hypertensive range. asymptomatic Assessment & Plan (1) 40 weeks gestation of : (2) Encounter for induction of labor: Plan Will begin second stage. fetus overall reassuring. Admission and Anticipated Discharge Date Admission Date: February 16, 2024 Physical Exam Physical Exam: cx--c/c/0-+1 toco--q2min efm--150s with mod to marked variability, small accels, occasional variables Results & Data Vital Signs (Past 12 Hours) Vital Signs Temp Pulse Resp BP Pulse Ox 02/17/24 04:18 93 H 158/74 H 02/17/24 04:02 80 141/71 H 02/17/24 03:48 82 145/77 H 02/17/24 03:33 88 163/90 H 02/17/24 03:18 125 H 135/86 02/17/24 03:04 83 168/90 H 02/17/24 03:03 93 H 182/96 H 02/17/24 02:48 91 H 178/96 H 02/17/24 02:46 18 02/17/24 02:46 37.0 C 18 02/17/24 02:38 95 H 148/67 H 02/17/24 02:36 89 174/97 H 02/17/24 02:34 89 191/97 H 02/17/24 02:09 78 94 02/17/24 02:04 94 02/17/24 02:04 79 02/17/24 02:04 78 94 02/17/24 02:02 76 127/60 02/17/24 01:59 95 02/17/24 01:59 88 02/17/24 01:59 77 94 02/17/24 01:54 76 95 02/17/24 01:49 79 95 02/17/24 01:47 86 115/65 02/17/24 01:44 80 96 02/17/24 01:39 37.2 C 88 18 97 02/17/24 01:35 85 94 02/17/24 01:34 82 95 02/17/24 01:33 85 145/77 H 02/17/24 01:29 79 95 02/17/24 01:24 84 97 02/17/24 01:19 81 96 02/17/24 01:18 80 142/81 H 02/17/24 01:14 87 96 02/17/24 01:09 94 H 99 02/17/24 01:04 99 H 100 02/17/24 01:03 93 02/17/24 01:03 88 02/17/24 01:03 80 134/77 02/17/24 00:59 103 H 96 02/17/24 00:54 81 97 02/17/24 00:49 93 H 98 02/17/24 00:44 84 98 02/17/24 00:40 98 H 92 02/17/24 00:39 91 H 97 02/17/24 00:34 91 H 99 02/17/24 00:33 91 H 141/84 H 02/17/24 00:29 86 97 02/17/24 00:25 95 H 93 02/17/24 00:24 93 H 96 02/17/24 00:19 101 H 97 02/17/24 00:17 93 H 144/89 H 02/17/24 00:14 96 H 98 02/17/24 00:09 116 H 100 02/17/24 00:05 89 91 02/17/24 00:04 91 H 98 02/17/24 00:03 81 139/82 02/16/24 23:59 90 99 02/16/24 23:56 86 93 02/16/24 23:54 91 H 100 02/16/24 23:49 92 H 98 02/16/24 23:47 92 H 144/88 H 02/16/24 23:44 90 98 02/16/24 23:39 85 98 02/16/24 23:34 83 98 02/16/24 23:33 83 141/80 H 02/16/24 23:29 80 96 02/16/24 23:24 88 96 02/16/24 23:19 80 98 02/16/24 23:17 85 137/86 02/16/24 23:14 86 97 02/16/24 23:12 16 02/16/24 23:12 37.1 C 16 02/16/24 23:11 90 94 02/16/24 23:09 77 97 02/16/24 23:04 79 100 02/16/24 23:02 79 142/81 H 02/16/24 22:59 80 100 02/16/24 22:56 103 H 89 L 02/16/24 22:54 95 H 100 02/16/24 22:49 100 02/16/24 22:49 96 H 02/16/24 22:49 89 92 02/16/24 22:46 129/73 02/16/24 22:44 99 02/16/24 22:44 90 02/16/24 22:44 83 136/75 92 02/16/24 22:42 92 H 136/74 02/16/24 22:40 90 136/75 02/16/24 22:39 85 100 02/16/24 22:38 87 136/75 02/16/24 22:36 94 H 134/77 02/16/24 22:34 86 147/80 H 100 02/16/24 22:32 84 145/85 H 02/16/24 22:29 84 L 02/16/24 22:29 83 02/16/24 22:29 88 151/85 H 89 L 02/16/24 22:24 82 99 02/16/24 22:19 99 02/16/24 22:19 86 02/16/24 22:19 92 H 142/93 H 02/16/24 22:14 105 H 98 02/16/24 22:09 90 100 02/16/24 22:05 85 88 L 02/16/24 22:04 87 98 02/16/24 21:59 81 100 02/16/24 21:54 83 99 02/16/24 21:49 93 H 97 02/16/24 21:46 101 H 88 L 02/16/24 21:44 86 100 02/16/24 21:39 81 97 02/16/24 21:34 79 100 02/16/24 21:29 81 100 02/16/24 21:28 86 91 02/16/24 21:24 75 97 02/16/24 21:19 85 96 02/16/24 21:14 87 97 02/16/24 21:09 86 98 02/16/24 21:08 89 93 02/16/24 21:04 90 99 02/16/24 21:01 16 02/16/24 21:01 37.2 C 16 02/16/24 20:59 90 98 02/16/24 20:54 78 L 02/16/24 20:54 75 04/03/24 20:54 65 94 02/16/24 20:49 96 H 100 02/16/24 20:48 112 H 91 02/16/24 20:44 97 H 135/88 100 02/16/24 20:39 133 H 100 02/16/24 20:34 88 100 02/16/24 20:30 100 H 94 02/16/24 20:29 90 100 02/16/24 20:28 90 140/85 02/16/24 20:24 93 H 98 02/16/24 20:19 102 H 100 02/16/24 20:15 106 H 91 02/16/24 20:14 95 H 100 02/16/24 20:09 99 H 139/91 99 02/16/24 20:07 93 H 90 02/16/24 20:04 83 99 02/16/24 19:59 78 100 02/16/24 19:54 81 134/96 96 02/16/24 19:51 84 90 02/16/24 19:49 85 99 02/16/24 19:44 85 98 02/16/24 19:43 80 93 02/16/24 19:40 76 158/80 H 02/16/24 19:39 69 99 02/16/24 19:34 69 82 L 02/16/24 19:29 69 98 02/16/24 19:28 72 92 02/16/24 19:24 72 171/88 H 100 02/16/24 19:21 71 91 02/16/24 19:19 72 100 02/16/24 19:14 76 97 02/16/24 19:12 74 92 02/16/24 19:09 97 02/16/24 19:09 72 02/16/24 19:09 72 149/90 H 02/16/24 19:04 36.9 C 74 16 100 02/16/24 18:59 72 100 02/16/24 18:54 98 02/16/24 18:54 74 02/16/24 18:54 69 150/87 H 02/16/24 18:51 73 92 02/16/24 18:49 75 100 02/16/24 18:44 74 100 02/16/24 18:42 80 93 02/16/24 18:39 98 02/16/24 18:39 75 02/16/24 18:39 109 H 141/80 H 02/16/24 18:34 74 99 02/16/24 18:32 87 93 02/16/24 18:30 18 02/16/24 18:30 18 02/16/24 18:29 86 97 02/16/24 18:26 75 92 02/16/24 18:24 71 121/64 96 02/16/24 18:19 68 95 02/16/24 18:14 75 99 02/16/24 18:11 93 H 93 02/16/24 18:09 95 02/16/24 18:09 71 02/16/24 18:09 75 141/80 H 02/16/24 18:04 73 96 02/16/24 18:00 18 02/16/24 18:00 18 02/16/24 17:59 73 96 02/16/24 17:54 79 136/78 98 02/16/24 17:49 82 99 02/16/24 17:44 81 90 02/16/24 17:39 96 02/16/24 17:39 78 02/16/24 17:39 74 132/79 02/16/24 17:34 85 96 02/16/24 17:31 83 93 02/16/24 17:30 18 02/16/24 17:30 36.9 C 18 02/16/24 17:29 89 96 02/16/24 17:24 77 124/61 97 02/16/24 17:19 83 96 02/16/24 17:17 81 91 02/16/24 17:14 92 H 96 02/16/24 17:09 97 02/16/24 17:09 89 02/16/24 17:09 32 L 110/67 02/16/24 17:08 90 94 02/16/24 17:04 85 96 02/16/24 17:00 18 02/16/24 17:00 18 02/16/24 16:59 95 02/16/24 16:59 93 H 02/16/24 16:59 85 94 02/16/24 16:55 89 121/79 02/16/24 16:54 86 94 02/16/24 16:52 82 94 02/16/24 16:49 92 H 96 02/16/24 16:44 84 95 02/16/24 16:43 92 H 94 02/16/24 16:39 88 123/77 96 02/16/24 16:34 82 95 02/16/24 16:30 80 18 94 Coding Level of Care Code None Diagnoses 40 weeks gestation of Z3A.40 Encounter for induction of labor Z34.90
[2024-02-17] MEDS ORDERED: ONDANSETRON INJ 2 MG/ML 2 ML VIAL IV STA (04:54)
--- NOTE | 2024-02-17 06:38 | Delivery Summary ---
Vaginal Delivery Summary Date of Service February 17, 2024 Vaginal Delivery Summary Pre-operative Diagnosis: at 40 5/7 weeks iol for postdates Post-operative Diagnosis: sane Procedure: aviles bulb for cervical ripening pitocin induction epidural arom iupc shoulder dystocia bilateral labial lacerations and small introitus laceration QBL: 277cc Anesthesia: epidural Procedure: The patient was admitted for postdates induction. she underwent pl acement of aviles bulb and immediate pitocin. The bulb fell out and she received an epidural. After epidural, she had arom for clear fluid. the pateint had slow progression and IUPC placed showing adequate contractions. She progressed very slowly to c/c/0. The patient pushed for a little over an hour to deliver a viable male infant in doa and restituted to rayshawn position. A shoulder dystocia was then encountered of the right anterior shoulder. this lasted for less than 30 secs and was resolved with lying the patient flat, McRobers and suprapubic pressure. As the shoulder was delivered , the matching machine operator heard a pop. The nose and mouth were bulb suctioned and the infant was placed on the maternal abdomen for drying and attention. Cord was clamped and cut at almost immediately after placing on the abdomen as he was floppy. The baby was then taken to the warmer. Cord blood and segment obtained. Placenta delivered spontaneous, intact with a three vessel cord. Cervix/sulci/rectum/perineum were intact. Bilateral labial and a small introital lacerations were repaired in the normal standard fashion. Hemostasis obtained with dilute pitocin and fundal massage. Apgars were 6/8. Mother and baby doing well at the end of the delivery. [facility] Vaginal Delivery Charge Delivery Type Details: [facility]
[2024-02-17 06:40] LABS: CO2 Cord Arterial Blood 34 mmHg (39.1-73.5); HCO3 Cord Arterial Blood 20 mmol/L (19.7-28.5); Oxygen Sat Cord Arterial Blood 62.1 % (<60); PO2 Cord Arterial Blood 33 mmHg (4.1-31.7); pH Cord Arterial Blood 7.38 (7.1-7.38)
[2024-02-17] MEDS: OXYTOCIN 30 UNITS/NSS 30 UNITS/500 ML BAG IV PRN (06:56)
[2024-02-17] MEDS ORDERED: bisacodyL 10 MG SUPP PR PRN (07:01)
[2024-02-17] MEDS ORDERED: oxyCODONE/ACETAMINOPHEN 5mg/325mg TAB PO PRN (07:01)
[2024-02-17] MEDS ORDERED: ACETAMINOPHEN 325 MG TAB PO PRN (07:01)
[2024-02-17] MEDS ORDERED: HYDROCORTISONE ACETATE 25 MG SUPP PR PRN (07:01)
[2024-02-17] MEDS ORDERED: OXYTOCIN 30 UNITS/NSS 30 UNITS/500 ML BAG IV PRN (07:01)
[2024-02-17] MEDS: IBUPROFEN 600 MG TAB PO PRN (07:50)
[2024-02-17] MEDS: LABETALOL HCL 100 MG TAB PO SCH (07:50)
[2024-02-17] MEDS: PRENATAL VITAMIN 1 TAB PO SCH (07:51)
[2024-02-17] MEDS: DOCUSATE SODIUM 100 MG CAP PO SCH (07:51)
[2024-02-17] MEDS: BENZOCAINE 20% SPRY 85 APPLN/85 GM CAN EXT PRN (07:53)
[2024-02-17] MEDS: LEVOTHYROXINE SODIUM 125 MCG TABLET PO SCH (07:56)
--- NOTE | 2024-02-17 08:07 | Anesthesia Procedure Note ---
Date of Service February 17, 2024 Anesthesia Post Epidural Note Vital Signs Vital Signs: Temp Pulse Resp BP Pulse Ox 36.8 C 78 18 145/84 H 96 02/17/24 06:46 02/17/24 07:52 02/17/24 07:15 02/17/24 07:52 02/17/24 07:20 Pain Intensity Abdomen: Pain Intensity: 6 Notes Mental Status: alert / awake / arousable and participated in evaluation Nausea / Vomiting: adequately controlled Pain: adequately controlled Airway Patency, RR, SpO2: stable & adequate BP & HR: stable & adequate Hydration State: stable & adequate Neuraxial Anesthesia: was administered and sensory block is resolving Anesthetic Complications: no major complications apparent Epidural: Removed without complications and With tip intact
[2024-02-17 08:27] LABS: Hematocrit (blood only) 28.6 % (37.0-47.0); Hemoglobin 9.8 g/dl (12.0-16.0); Mean Corpuscular Hemoglobin 30.4 pg (25.0-34.0); Mean Corpuscular Hgb Conc 34.3 g/dL (32.0-36.0); Mean Corpuscular Volume 88.8 fL (80.0-100.0); Mean Platelet Volume 11.5 fL (9.4-12.4); Platelet Count 184 K/uL (130-400); RDW Coefficient of Variation 13.2 % (11.5-14.5); RDW Standard Deviation 42.3 fL (36.4-46.3); Red Blood Count 3.22 M/uL (4.20-5.40); White Blood Count 24.62 K/ul (4.8-10.8)
[2024-02-17 08:50] LABS: Albumin Globulin Ratio 1.2 (0.9-2); Albumin Level 2.9 gm/dl (3.4-5.0); BUN Creatinine Ratio 11.9 (10-20); Bilirubin,Total 0.8 mg/dl (0.2-1.0); Calcium 7.7 mg/dl (8.6-10.3); Creatinine Clr Calc Pharmacy 142.5 ml/min; Est GFR (African American) 138.6 ml/min; Est GFR (Non-African American) 119.6 ml/min; Globulin 2.5 gm/dl (2.5-4.0); Potassium 2.6 mmol/L (3.5-5.1); Total Protein 5.4 gm/dl (6.0-8.3)
[2024-02-17] MEDS: LABETALOL HCL 100 MG TAB ONE (13:01)
[2024-02-17] MEDS: ONDANSETRON INJ 2 MG/ML 2 ML VIAL ONE (15:51)
[2024-02-17] MEDS: DIPHTHER/TETAN/PERTUS Vaccine (Tdap, Adol/Adult) 0.5mL IM ONE (15:51)
--- NOTE | 2024-02-18 06:09 | Obstetrical Progress Note ---
Date of Service <Brandon Colorado DO - Last Filed: 02/18/24 06:47> February 18, 2024 Assessment & Plan <Brandon Colorado DO - Last Filed: 02/18/24 06:47> (1) Encounter for assessment: Plan 29 y/o PPD#1 Eating well, voiding well, ambulating well Vitals reviewed, notable for initial post HTN, overnight BP WNL - continue Labetalol - will have BP check at 1 week following discharge Pain well controlled with Motrin Routine post care - OOB, ambulation, diet progression as tolerated Will have 6 week follow up with Dr. Gilmore <Siena Carreon MD - Last Filed: 02/18/24 06:55> (1) Encounter for assessment: Subjective <Brandon Colorado DO - Last Filed: 02/18/24 06:47> Ambulation: ambulating normally Voiding: no voiding problems Passing Gas:: Yes Diet Tolerance:: regular diet Lochia:: Moderate Feeding Type:: breast feeding Pain well controlled with Motrin Review of Systems -Denies fever or chills -Denies dyspnea, chest pain, or palpitations -Denies dysuria -Denies headache or changes in vision Physical Exam <Brandon Colorado - Last Filed: 02/18/24 06:47> General: Alert and oriented. No acute distress Cardiac: Regular rate and rhythm, no murmurs appreciated Respiratory: Lungs clear to auscultation bilaterally, No increased work of breathing Abdominal: Soft, non-tender, non-distended. Bowel sounds present. Uterus: Uterine fundus firm, palpable below umbilicus Extremities: No lower extremity edema, calves non-tender bilaterally Results & Data <Brandon Colorado DO - Last Filed: 02/18/24 06:47> Vital Signs (Past 12 Hours) Vital Signs Temp Pulse Resp BP Pulse Ox O2 Del Method 02/18/24 03:00 36.5 C 80 16 118/71 99 Room Air 02/18/24 00:07 36.5 C 76 18 126/81 97 Room Air 02/17/24 19:55 36.5 C 80 18 128/82 98 Room Air Supervising Physician <Siena Carreon MD - Last Filed: 02/18/24 06:55> Co-Signing Physician Notes Resident Physician Supervision Note: I interviewed and examined the patient. Discussed with Dr. Colorado and agree with findings and plan as documented in the note. Any exceptions or clarifications are listed here: [ ] Documented By: Siena Carreon MD, FACOG Resident Activity Tracking <Brandon Colorado, DO - Last Filed: 02/18/24 06:47> Resident Involvement: Resident Care Provided Care Provided: OB Delivery
[2024-02-18 08:10] LABS: Hematocrit (blood only) 25.1 % (37.0-47.0); Hemoglobin 8.5 g/dl (12.0-16.0)
[2024-02-18] MEDS ORDERED: bisacodyL 5 MG TABEC PO SCH (20:00)
--- NOTE | 2024-02-21 05:53 | Coding Query ---
CODING QUERY To promote full compliance with coding requirements relating to patient care, provider participation is requested in all cases of workers' compensation claims supervisor uncertainty. Please assist us with the question(s) below: Coding Question(s): Could you please specify the severity/degree of the patient's labial and introital lacerations by placing an x in the () below? LABIAL LACERATION: First degree, skin (x) Second degree, skin and muscle () Other, please specify () INTROITAL LACERATION: First degree, skin (x) Second degree, skin and muscle () Other, please specify () Physician's Response(s): Thank you Beatrice Washington Principal Diagnosis: "that condition established after study, to be chiefly responsible for occasioning the admission of the patient to the hospital for care." Co-Existing Principal Diagnosis: "when two or more diagnoses equally meet the criteria for principal diagnosis as determined by the circumstances of admission, diagnostic work up, and/or therapy provided, and the Alphabetic Index, Tabular List, or another coding guideline does not provide sequencing direction, any one of the diagnoses may be sequenced first." "When the physician has documented what appears to be a current diagnosis in the body of the record, but has not included the diagnosis in the final diagnostic statement, the physician should be asked whether the diagnosis should be added." ([facility] 2 QTR90. p3-4) ARCHANA
== END 2024-02-18 14:20 | disposition home or self-care (01) | DRG 807 ==
LOC: 4S1 07:36 → 4E2 02-17 09:53